=== PATIENT | female | born 1955 | race African-American/Black ===

== ENCOUNTER 2017-12-23 12:53 | Observation (INO) | payer BC ==
--- NOTE | 2017-12-23 14:38 | ER ---
Nurse's Notes [facility] Name: Mikala López Age: 62 yrs Sex: Female : 1955 Arrival Date: 12/23/2017 Time: 12:55 Bed 7 Private MD: Out, [facility] Diagnosis: Anemia, unspecified;Chronic viral hepatitis C;Chronic viral hepatitis Presentation: 12/23 13:01 Presenting complaint: Patient states: Seen today at her oncologist office, lab work sg indicated a Hgb of 6, instructed to come to the ER for treatment and possible transfusion. pt reports fatigue, weakness and shortness of breath upon exertion. Transition of care: patient was not received from another setting of care. Onset of symptoms was December 23, 2017. Risk Assessment: Do you want to hurt yourself or someone else? Patient reports no desire to harm self or others. Initial Sepsis Screen: Does the patient meet any 2 criteria? No. Patient's initial sepsis screen is negative. Does the patient have a suspected source of infection? No. Patient's initial sepsis screen is negative. Care prior to arrival: None. 13:01 Method Of Arrival: Ambulatory sg 13:01 Acuity: CARLOS 3 sg Historical: - Allergies: 13:05 No Known Allergies; sg - Home Meds: 13:05 Enclusa [Active]; amlodipine oral [Active]; sg - PMHx: 13:05 Hepatitis; Hypertension; sg - Immunization history:: Adult Immunizations up to date. - Social history:: Smoking status: Patient uses tobacco products, 10 cig/day. - Ebola Screening: : Patient negative for fever greater than or equal to 101.5 degrees Fahrenheit, and additional compatible Ebola Virus Disease symptoms Patient denies exposure to infectious person Patient denies travel to an Ebola-affected area in the 21 days before illness onset No symptoms or risks identified at this time. Screenin:48 Abuse screen: Denies threats or abuse. Denies injuries from another. Nutritional sv screening: No deficits noted. Tuberculosis screening: No symptoms or risk factors identified. Fall Risk None identified. Assessment: 13:45 General: Appears in no apparent distress. comfortable, Behavior is calm, cooperative, sv appropriate for age. Pain: Denies pain. Neuro: Level of Consciousness is awake, alert, obeys commands, Oriented to person, place, time, situation, Moves all extremities. Full function Reports weakness. Respiratory: Reports shortness of breath on exertion Respiratory effort is even, unlabored, Respiratory pattern is regular, symmetrical. Derm: Skin is normal. Vital Signs: 13:03 BP 116 / 68; Pulse 79; Resp 17; Pulse Ox 99% on R/A; Weight 78.93 kg (R); sg 13:51 BP 97 / 52; Pulse 74 MON; Resp 12; Pulse Ox 100% ; sv 13:51 Sinus Rhythm sv ED Course: 12:55 Patient arrived in ED. sb2 12:55 Out, of Town is Private Physician. sb2 13:03 Triage completed. sg 13:03 Arm band placed on. sg 13:34 Steff Anaya, HAYLEE is Primary Nurse. sv 13:45 Patient has correct armband on for positive identification. Placed in gown. Bed in low sv position. Call light in reach. Side rails up X2. hall monitor on. Pulse ox on. NIBP on. Door closed. Warm blanket given. Head of bed elevated. 13:45 T\T\S collected, blood band applied to patient. Inserted saline lock: 20 gauge in right sv hand, using aseptic technique. Blood collected. Flushed right hand with 5 ml normal saline. 13:50 Awaiting ED provider evaluation. sv 13:57 Eric Sofia MD is Attending Physician. kdr 14:35 Chem 7 Sent. sv 14:35 CBC with Diff Sent. sv 14:35 Bb Add On Sent. sv 14:36 Terrell Kim MD is Hospitalizing Provider. kdr 15:07 No provider procedures requiring assistance completed. Patient admitted, IV remains in sv place. intact. Administered Medications: No medications were administered Outcome: 14:37 Decision to Hospitalize by Provider. kdr 15:52 Patient left the ED. sv 15:52 Admitted to Med/surg accompanied by tech, via wheelchair, with chart, Report called to Payal RN 15:52 Condition: stable 15:52 Instructed on the need for admit. Signatures: Steff Anaya RN RN Yunior Beal RN RN Eric Sofia MD MD [facility] [address] Fatou Edwards sb2 Corrections: (The following items were deleted from the chart) 13:51 13:45 Neuro: Level of Consciousness is awake, alert, obeys commands, Oriented to sv person, place, time, situation, Moves all extremities. Full function sv 13:51 13:45 Respiratory: Respiratory effort is even, unlabored, Respiratory pattern is sv regular, symmetrical, sv
--- NOTE | 2017-12-23 14:38 | EDPHYS ---
Physician Documentation [facility] Name: Mikala López Age: 62 yrs Sex: Female : 1955 Arrival Date: 12/23/2017 Time: 12:55 Bed 7 Private MD: Out, [facility] ED Physician Eric Sofia HPI: 12/23 18:52 This 62 yrs old Black Female presents to ER via Ambulatory with complaints of Anemia. kdr 18:52 The patient has become increasingly weak and fatigued over the last three days. She has kdr had this before when she gets anemic. She had last transfusion a few weeks ago when her Hgb was \R\5.3. She has no other c/o at this time. She was sent from her oncologists office for the transfusion. Onset: The symptoms/episode began/occurred gradually, 3 day(s) ago. Severity of symptoms: At their worst the symptoms were mild in the emergency department the symptoms are unchanged. The patient has experienced similar episodes in the past, multiple times. The patient has been recently seen by a physician: the patient's primary care provider. Historical: - Allergies: 13:05 No Known Allergies; sg - Home Meds: 13:05 Enclusa [Active]; amlodipine oral [Active]; sg - PMHx: 13:05 Hepatitis; Hypertension; sg - Immunization history:: Adult Immunizations up to date. - Social history:: Smoking status: Patient uses tobacco products, 10 cig/day. - Ebola Screening: : Patient negative for fever greater than or equal to 101.5 degrees Fahrenheit, and additional compatible Ebola Virus Disease symptoms Patient denies exposure to infectious person Patient denies travel to an Ebola-affected area in the 21 days before illness onset No symptoms or risks identified at this time. ROS: 18:52 Constitutional: Negative for fever, chills, and weight loss, Eyes: Negative for injury, kdr pain, redness, and discharge, ENT: Negative for injury, pain, and discharge, Neck: Negative for injury, pain, and swelling, Cardiovascular: Negative for chest pain, palpitations, and edema, Respiratory: Negative for shortness of breath, cough, wheezing, and pleuritic chest pain, Abdomen/GI: Negative for abdominal pain, nausea, vomiting, diarrhea, and constipation, Back: Negative for injury and pain, : Negative for injury, bleeding, discharge, and swelling, MS/Extremity: Negative for injury and deformity, Skin: Negative for injury, rash, and discoloration, Neuro: Negative for headache, weakness, numbness, tingling, and seizure activity. Psych: Negative for depression, anxiety, suicide ideation, homicidal ideation, and hallucinations, Allergy/Immunology: Negative for hives, rash, and allergies, Endocrine: Negative for neck swelling, polydipsia, polyuria, polyphagia, and marked weight changes, Hematologic/Lymphatic: Negative for swollen nodes, abnormal bleeding, and unusual bruising. Exam: 18:52 Constitutional: This is a well developed, well nourished patient who is awake, alert, kdr and in no acute distress. Head/Face: Normocephalic, atraumatic. Eyes: Pupils equal round and reactive to light, extra-ocular motions intact. Lids and lashes normal. Conjunctiva and sclera are non-icteric and not injected. Cornea within normal limits. Periorbital areas with no swelling, redness, or edema. Neck: Trachea midline, no thyromegaly or masses palpated, and no cervical lymphadenopathy. Supple, full range of motion without nuchal rigidity, or vertebral point tenderness. No Meningismus. Chest/axilla: Normal chest wall appearance and motion. Nontender with no deformity. No lesions are appreciated. Cardiovascular: Regular rate and rhythm with a normal S1 and S2. No gallops, murmurs, or rubs. Normal PMI, no JVD. No pulse deficits. Respiratory: Lungs have equal breath sounds bilaterally, clear to auscultation and percussion. No rales, rhonchi or wheezes noted. No increased work of breathing, no retractions or nasal flaring. Abdomen/GI: Soft, non-tender, with normal bowel sounds. No distension or tympany. No guarding or rebound. No evidence of tenderness throughout. Back: No spinal tenderness. No costovertebral tenderness. Full range of motion. Skin: Warm, dry with normal turgor. Normal color with no rashes, no lesions, and no evidence of cellulitis. MS/ Extremity: Pulses equal, no cyanosis. Neurovascular intact. Full, normal range of motion. Neuro: Awake and alert, GCS 15, oriented to person, place, time, and situation. Cranial nerves II-XII grossly intact. Motor strength 5/5 in all extremities. Sensory grossly intact. Cerebellar exam normal. Normal gait. Psych: Awake, alert, with orientation to person, place and time. Behavior, mood, and affect are within normal limits. Vital Signs: 13:03 BP 116 / 68; Pulse 79; Resp 17; Pulse Ox 99% on R/A; Weight 78.93 kg (R); sg 13:51 BP 97 / 52; Pulse 74 MON; Resp 12; Pulse Ox 100% ; sv 13:51 Sinus Rhythm sv MDM: 14:37 Patient medically screened. kdr 18:52 Data reviewed: vital signs, nurses notes, lab test result(s). Counseling: I had a kdr detailed discussion with the patient and/or guardian regarding: the historical points, exam findings, and any diagnostic results supporting the discharge/admit diagnosis, lab results, the need for further work-up and treatment in the hospital. Physician consultation: Terrell Kim MD. 12/23 13:34 Order name: Type And Screen sv 12/23 13:56 Order name: Bb Add On mb4 12/23 14:23 Order name: CBC with Diff [facility] 12/23 14:23 Order name: Chem 7 kdr 12/23 14:23 Order name: CBC with Automated Diff [facility] 12/23 14:12 Order name: Labs - recollect needed; Complete Time: 14:24 [facility] 12/23 14:24 Order name: Basic Metabolic Panel [facility] 12/23 14:42 Order name: Packed RBC Leukored -1 [facility] 12/23 15:38 Order name: ABO/RH no charge EDMS Administered Medications: No medications were administered Disposition: 12/23/17 14:37 Hospitalization ordered by Terrell Kim for Observation. Preliminary diagnosis are Anemia, unspecified, Chronic viral hepatitis C, Chronic viral hepatitis. - Bed requested for Telemetry/MedSurg (observation). - Status is Observation. sv - Condition is Fair. - Problem is an acute exacerbation. - Symptoms are unchanged. UTI on Admission? No Signatures: Dispatcher [employer] EDMS Steff Anaya, RN Lili Palmer RN Yunior Garvey RN RN sg Rittger, Kevin, MD MD [facility] Elisa Mauricio mb4 Corrections: (The following items were deleted from the chart) 14:48 14:37 Hospitalization Ordered by Terrell Kim MD for Observation. Preliminary diagnosis mb4 is Anemia, unspecified; Chronic viral hepatitis C; Chronic viral hepatitis. Bed requested for Telemetry/MedSurg (observation). Status is Observation. Condition is Fair. Problem is an acute exacerbation. Symptoms are unchanged. UTI on Admission? No. kdr 15:00 14:48 12/23/2017 14:37 Hospitalization Ordered by Terrell Kim MD for Observation. dw Preliminary diagnosis is Anemia, unspecified; Chronic viral hepatitis C; Chronic viral hepatitis. Bed requested for Telemetry/MedSurg (observation). Status is Observation. Condition is Fair. Problem is an acute exacerbation. Symptoms are unchanged. UTI on Admission? No. mb4 15:52 15:00 12/23/2017 14:37 Hospitalization Ordered by Terrell Kim MD for Observation. sv Preliminary diagnosis is Anemia, unspecified; Chronic viral hepatitis C; Chronic viral hepatitis. Bed requested for Telemetry/MedSurg (observation). Status is Observation. Condition is Fair. Problem is an acute exacerbation. Symptoms are unchanged. UTI on Admission? No. dw
[2017-12-23 16:07] VITALS: BMI 28.0
[2017-12-23] MEDS: NA CHLORIDE 0.9% 1,000 ML IV SCH ×2 (16:23→22:36)
--- NOTE | 2017-12-23 16:25 | P.HP ---
Certification for Inpatient Patient admitted to: Observation With expected LOS: <2 Midnights Patient will require the following post-hospital care: None Practitioner: I am a practitioner with admitting privileges, knowledge of patient current condition, hospital course, and medical plan of care. Services: Services provided to patient in accordance with Admission requirements found in Title 42 Section 412.3 of the Code of Federal Regulations Patient History Date of Service: 12/23/17 Reason for admission: anemia History of Present Illness: 62 y/o female with h/o HCV, "cryoglobulinemia" and severe anemia who was sent from hematology clinic to ER for blood transfusion. She denies rectal bleeding. She states some time her urine turns dark. She has no fever chills. She is being treated for HCV. Allergies No Known Allergies Allergy (Verified 12/23/17 14:49) Home Medications: Amlodipine [Norvasc] 5 mg PO DAILY 12/23/17 Sofosbuvir/Velpatasvir [Epclusa 400 mg-100 mg Tablet] 1 tab PO DAILY 12/23/17 - Past Medical/Surgical History Has patient received pneumonia vaccine in the past: No Diabetic: No -: Viral Hepa C -: High blood pressure -: Partial Hysterectomy - Family History Father History Unknown: Yes Mother History Unknown: Yes - Social History Smoking Status: Current every day smoker Alcohol use: No CD- Drugs: No Caffeine use: Yes Place of Residence: Home Review of Systems 10-point ROS is otherwise unremarkable Physical Examination - Vital Signs Blood Pressure: 97/52 Pulse: 74 Respirations: 12 - Physical Exam General: Alert, In no apparent distress HEENT: Atraumatic, PERRLA, Mucous membr. moist/pink, EOMI, Sclerae nonicteric Neck: Supple, 2+ carotid pulse no bruit, No LAD, Without JVD or thyroid abnormality Respiratory: Clear to auscultation bilaterally, Normal air movement Cardiovascular: Regular rate/rhythm, Normal S1 S2 Gastrointestinal: Normal bowel sounds, No tenderness Musculoskeletal: No tenderness Integumentary: No rashes Neurological: Normal gait, Normal speech, Normal strength at 5/5 x4 extr, Normal tone, Normal affect Lymphatics: No axilla or inguinal lymphadenopathy Assessment and Plan - Problems (Diagnosis) (1) Anemia Current Visit: Yes Status: Acute Qualifiers: Anemia type: unspecified type Qualified Code(s): D64.9 - Anemia, unspecified (2) Hepatitis C infection Current Visit: Yes Status: Acute - Plan 2 u prbc f/u cbc dc home am - Advance Directives Does patient have a Living Will: No Does patient have a Durable POA for Healthcare: No
[2017-12-23 17:00] LABS: Absolute Lymphocytes (CBC) 2.5 K/uL (0.7-4.9); Absolute Monocytes 0.1 K/uL (0.1-1.3); Absolute Neutrophil 0.5 K/uL (1.8-8.0); Basophils % 0.2 % (0-1.3); Lymphocytes % 80.8 % (15.3-44.8); MCH 29.6 pg (27.0-35.0); MCV 86.8 fL (80-100); MPV 7.4 fL (7.6-11.3); Monocytes % 3.6 % (3.3-12.3); RBC Red Blood Cell Count 1.96 M/uL (3.86-4.86)
[2017-12-23 17:19] LABS: BUN Blood Urea Nitrogen 11 mg/dL (7-18); Bicarbonate 29 mmol/L (21-32); Glucose Level 88 mg/dL (74-106); Potassium 4.1 mmol/L (3.5-5.1); Sodium Level 141 mmol/L (136-145)
[2017-12-23 17:49] LABS: Blood Morphology Comment NOTED (NOT SEEN); Hypochromasia 1+; Platelet Estimate INCR; Urine White Blood Cell Casts OK
[2017-12-23 20:08] LABS: Urine Appearance CLEAR; Urine Bilirubin NEGATIVE (NEG); Urine Blood 1+ (NEG); Urine Color YELLOW; Urine Glucose NEGATIVE (NEG); Urine Protein NEGATIVE (NEG); Urine Specific Gravity 1.015 (1.005-1.030); Urine pH 6.5 (5.0-7.0)
[2017-12-23 20:44] LABS: Urine Bacteria <20 /HPF (<20); Urine Culture Reflex Order NOT NEEDED; Urine Microscopic Reflex ORDER UMIC; Urine RBC <5 /HPF (NONE SEEN)
[2017-12-23] MEDS ORDERED: NA CHLORIDE 0.9% 500 ML ONE (23:28)
[2017-12-24] MEDS: AMLODIPINE 5 MG TAB PO SCH (09:17)
[2017-12-24 09:56] LABS: Hematocrit 23.4 % (36.0-45.0)
[2017-12-24 10:01] LABS: RBC Red Blood Cell Count 2.64 M/uL (3.86-4.86)
[2017-12-24 10:02] LABS: Bilirubin Direct 0.2 mg/dL (0-0.2); Bilirubin Total 0.8 mg/dL (0.2-1.0); Protein, Total 7.2 g/dL (6.4-8.2)
[2017-12-24] MEDS: NA CHLORIDE 0.9% 1,000 ML IV SCH ×2 (11:43→21:43)
--- NOTE | 2017-12-24 17:37 | P.PN ---
Subjective Date of Service: 12/24/17 Chief Complaint: anemia feels better after transfusion Physical Examination - Vital Signs Temperature: 97.3 F Blood Pressure: 124/58 Pulse: 66 Respirations: 17 Pulse Ox (%): 96 - Physical Exam General: Alert, In no apparent distress HEENT: Atraumatic, PERRLA, EOMI Neck: Supple, JVD not distended Respiratory: Clear to auscultation bilaterally, Normal air movement Cardiovascular: Regular rate/rhythm, Normal S1 S2 Gastrointestinal: Normal bowel sounds, No tenderness Musculoskeletal: No tenderness Integumentary: No rashes Neurological: Normal speech, Normal tone, Normal affect Lymphatics: No axilla or inguinal lymphadenopathy - Studies Medications List Reviewed: Yes Assessment And Plan - Current Problems (Diagnosis) (1) Anemia Onset Date: 12/24/17 Current Visit: Yes Status: Acute Qualifiers: Anemia type: unspecified type Qualified Code(s): D64.9 - Anemia, unspecified (2) Hepatitis C infection Onset Date: 12/24/17 Current Visit: Yes Status: Acute - Plan ---F/U CBC ---No obvious hemolysis ongoing ---being transferred to [facility]
--- NOTE | 2017-12-24 19:27 | P.PN ---
Date of Service: 12/24/17 (Hematology) Patient with chronic anemia, known to me from clinic. She initially presented with significant anemia, work up for which revealed positive Hep C infection and high titres of Rh factor. 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 She was referred to [facility] for management of Hep C with the expectation of improvement of the cryoglobulinemia titres. She has been on treatment with epclusa for Hep c for almost 8 weeks now with no improvement in Hb and she has been requiring PRBC transfusions quite frequently lately. She has also been evaluated by Rheumatology who feel that her s/s should improve with Hep C treatment. When seen yesterday in clinic, she appeared fatigued and pale with a Hb of 6. She was also leucopenic with a ANC of 500. Of note, she reports having some dark tinged urine intermittently. Urine tested + for blood (1-2+). She received 2 units of PRBC overnight and feels much better today. No evidence of hemolysis on labs. Retic count reduced at 0.29%, LDH 142, normal Bi. Prior haptoglobin was in normal range. KACI negative. Smear unremarkable without any hemolytic findings, no agglutination or rouleaux. Normocytic anemia. WBC unremarkable with decreased in neutrophils. No blasts. Plt adequate. Flow unremarkable for any monoclonal populations. Increase in CD4-CD8 ratio. Plan/ Recommendations: 1. Anemia: Likely due to Cryoglobulinemia in the setting of Hep C / Rheumatoid arthritis. I suspect that she may also have bone marrow suppression as well. She has been requiring transfusions with increase in ferritin. EGD/ colonoscopy has been unremarkable. Currently on epclusa treatment for Hep c with no improvement in anemia. Adequate improvement in Hb to 8.1 post 2 unitis of prbc. 2. Leucopenia. Gradual. Initially felt to be due to myelosuppressive effect of Hep C/ underlying autoimmune phenomenon. May be some immunosuppressive effect from Epclusa but unclear. Her ANC has dropped significantly to 500. No evidence of infections, fevers. No evidence of any monoclonal population, or blasts on flow/ smear. Maintain reverse isolation. Will need broad spectrum antibiotics if febrile or s /s of infection. In view of the above, I feel its prudent for her to have a bone marrow biopsy to better evaluate the cause for anemia/ leucopenia. 3. Cryoglobulinemia: Rare phenomenon. Usually expected to improve with Hep C treatment. But given above worsening s/s and also UA positive for blood, I am concerned if she has any ongoing vasculitis. Unclear if this was true hematuria or was there a transient DHTR. A question of whether plasmapheresis is indicated in this situation needs to be explored and for this reason, transfer to a tertiary center might be ideal for a better evaluation. Recommend Nephrology evaluation. Discussed at length with patient who voiced understanding. Also d/w house staff and Dr Kim.
[2017-12-25] MEDS: NA CHLORIDE 0.9% 1,000 ML IV SCH (04:38)
[2017-12-25 04:45] VITALS: O2SAT 96
[2017-12-25 05:10] LABS: Absolute Lymphocytes (CBC) 2.2 K/uL (0.7-4.9); Absolute Monocytes 0.1 K/uL (0.1-1.3); Absolute Neutrophil 0.4 K/uL (1.8-8.0); Basophils % 0.3 % (0-1.3); Eosinophils % 1.1 % (0-4.4); Hematocrit 21.7 % (36.0-45.0); Lymphocytes % 78.6 % (15.3-44.8); MCH 31.5 pg (27.0-35.0); MCV 87.1 fL (80-100); MPV 7.6 fL (7.6-11.3); Monocytes % 4.3 % (3.3-12.3)
[2017-12-25 05:40] LABS: ALT/SGPT 43 U/L (12-78); AST/SGOT 25 U/L (15-37); Albumin 2.7 g/dL (3.4-5.0); Alkaline Phosphatase 57 U/L (45-117); BUN Blood Urea Nitrogen 13 mg/dL (7-18); Bicarbonate 29 mmol/L (21-32); Bilirubin Total 0.5 mg/dL (0.2-1.0); Glucose Level 92 mg/dL (74-106); Potassium 4.3 mmol/L (3.5-5.1); Protein, Total 6.7 g/dL (6.4-8.2); Sodium Level 142 mmol/L (136-145)
[2017-12-25 06:46] LABS: Blood Morphology Comment NOTED (NOT SEEN); Hypochromasia 1+; Platelet Estimate ADEQ
[2017-12-25 06:47] LABS: Platelets, Giant FEW
[2017-12-25 08:22] VITALS: BP 123/60; TEMP 97.5
[2017-12-25] MEDS: AMLODIPINE 5 MG TAB PO SCH (09:00)
--- NOTE | 2017-12-25 15:25 | P.DS ---
Admission Date: 12/23/17 Discharge Date: 12/25/17 Disposition: ROUTINE DISCHARGE Discharge Condition: FAIR Reason for Admission: anemia - Problems (1) Anemia Onset Date: 12/24/17 Status: Acute Qualifiers: Anemia type: unspecified type Qualified Code(s): D64.9 - Anemia, unspecified (2) Hepatitis C infection Onset Date: 12/24/17 Status: Acute Brief History of Present Illness: 62 y/o female with h/o HCV, "cryoglobulinemia" and severe anemia who was sent from hematology clinic to ER for blood transfusion. She denies rectal bleeding. She states some time her urine turns dark. She has no fever chills. She is being treated for HCV. Hospital Course: She received 2 units PRBC with improvement of anemia. She has no new complaints. She is discharged in stable condition. A new appointment to [facility] was made for her next week. Also a bone marrow biopsy was scheduled next week. Vital Signs/Physical Exam: Temp Pulse Resp BP Pulse Ox 97.5 F 60 16 123/60 96 12/25/17 08:00 12/25/17 09:00 12/25/17 08:00 12/25/17 09:00 12/25/17 08:00 General: Alert, In no apparent distress HEENT: Atraumatic, PERRLA, EOMI Neck: Supple, JVD not distended Respiratory: Clear to auscultation bilaterally, Normal air movement Cardiovascular: Regular rate/rhythm, Normal S1 S2 Gastrointestinal: Normal bowel sounds, No tenderness Musculoskeletal: No tenderness Integumentary: No rashes Neurological: Normal speech, Normal tone, Normal affect Lymphatics: No axilla or inguinal lymphadenopathy Laboratory Data at Discharge: WBC 2.7 K/uL (4.3-10.9) L 12/25/17 04:35 Hgb 8.1 g/dL (12.0-15.0) L 12/25/17 11:30 Hct 23.0 % (36.0-45.0) L 12/25/17 11:30 Plt Count 357 K/uL (152-406) 12/25/17 04:35 Sodium 142 mmol/L (136-145) 12/25/17 04:35 Potassium 4.3 mmol/L (3.5-5.1) 12/25/17 04:35 BUN 13 mg/dL (7-18) 12/25/17 04:35 Creatinine 0.60 mg/dL (0.55-1.3) 12/25/17 04:35 Glucose 92 mg/dL (74-106) 12/25/17 04:35 Total Bilirubin 0.5 mg/dL (0.2-1.0) 12/25/17 04:35 AST 25 U/L (15-37) 12/25/17 04:35 ALT 43 U/L (12-78) 12/25/17 04:35 Alkaline Phosphatase 57 U/L (45-117) 12/25/17 04:35 Home Medications: Amlodipine [Norvasc*] 5 mg PO DAILY 12/23/17 Sofosbuvir/Velpatasvir [Epclusa 400 mg-100 mg Tablet] 1 tab PO DAILY 12/23/17 levoFLOXacin [Levaquin] 500 mg PO DAILY #14 tab 12/25/17 New Medications: levoFLOXacin [Levaquin] 500 mg PO DAILY #14 tab Diet: Regular Activity: Ad jorge alberto Followup: Gayla Javier MD [ACTIVE - CAN ADMIT] - 12/28/17 3:00 pm Time spent managing pt's care (in minutes): 15
== END 2017-12-25 12:45 | disposition home or self-care (01) ==
LOC: ER 12:53 → 2ND 14:37
PROVIDERS: ADMIT Internal Medicine Hematology & Oncology; ATTEND Internal Medicine Hematology & Oncology
PROC: 30233N1 Transfusion of Nonautologous Red Blood Cells into Peripheral Vein, Percutaneous Approach (ICD-10-PCS; principal; 2017-12-23)
DX: D64.9 Anemia, unspecified (principal); B17.10 Acute hepatitis C without hepatic coma; D89.1 Cryoglobulinemia
CPT/HCPCS: 36415; 80048; 80053; 80076; 81003; 81015; 83615; 85014; 85018; 85025; 85044; 86850; 86900; 86901; 99285; G0378; J7030; P9016